=== PATIENT | female | born 1990 ===

== ENCOUNTER → 2020-08-01 | Outpatient (CLI) | payer SELFPAY | LOC: LAB 11:48 | PROVIDERS: ATTEND Obstetrics & Gynecology | DX: Z01.812 Encounter for preprocedural laboratory examination (principal); Z20.822 Contact with and (suspected) exposure to COVID-19 | CPT/HCPCS: U0003 ==

== ENCOUNTER 2020-08-04 05:52 | Inpatient (IN) | payer SELFPAY ==
[~2020-08-04] VITALS: Ht 149.9 cm; Wt 92.5 kg
[2020-08-04] MEDS ORDERED: CITRIC ACID/SODIUM CITRATE 30 ML SOLUTION. PO ONE (06:00)
[2020-08-04] MEDS ORDERED: IV NORMAL SALINE 1000ML BAG 1,000 ML IV SCH ×3 (06:00→10:30)
[2020-08-04] MEDS: IV RINGERS,LACTATED 1000ML 1,000 ML IV SCH ×4 (06:14→16:45)
[2020-08-04 06:52] VITALS: BP 122/51
[2020-08-04] MEDS ORDERED: ceFAZolin 2GM PREMIX 2 GM/50 ML BAG IV ONE (07:00)
[2020-08-04 07:04] LABS: BILIRUBIN,URINE NEGATIVE (NEG); CLARITY,URINE CLEAR; COLOR,URINE YELLOW; NITRITE,URINE NEGATIVE (NEG); PROTEIN,URINE 30 mg/dL (NEG-TRACE); UROBILINOGEN,URINE 0.2 mg/dL (0.2 mg/dL)
[2020-08-04 07:07] LABS: HEMATOCRIT 37.9 % (36.0-47.0); HEMOGLOBIN 12.9 g/dL (12.0-15.5); RED BLOOD COUNT 4.13 x10^6/uL (3.50-5.40); RED CELL DISTRIBUTION WIDTH 13.9 % (11.5-14.5); WHITE BLOOD COUNT 12.3 x10^3/uL (4.0-11.0)
[2020-08-04 07:19] LABS: BACTERIA,URINE MODERATE /HPF (0-FEW)
[2020-08-04] MEDS ORDERED: fentaNYL PF VIAL 100 MCG/2 ML VIAL ONE (07:50)
[2020-08-04] MEDS ORDERED: MORPHINE PF 10 MG/10 ML AMPUL. ONE (07:50)
[2020-08-04] MEDS ORDERED: OXYTOCIN 10 UNIT/ML VIAL. ONE ×2 (07:54→08:40)
[2020-08-04] MEDS ORDERED: FAMOTIDINE 20 MG/2 ML VIAL ONE ×2 (07:54→07:55)
[2020-08-04] MEDS ORDERED: ONDANSETRON PF 4 MG/2 ML VIAL. ONE (07:54)
[2020-08-04] MEDS ORDERED: ePHEDrine PF IN SALINE 50 MG/10 ML SYRINGE. IV ONE (07:55)
[2020-08-04] MEDS ORDERED: PHENYLEPHRINE 10 MG/ML VIAL. ONE (07:55)
--- NOTE | 2020-08-04 08:00 | PDOC1 ---
MERCHANDISE DISTRIBUTOR H&P Date of Admission: Date of Admission: Aug 04, 2020 at 05:52 History of Present Illness: EDC: 08/11/20 LMP: 08/11/20 30y @ 39.0 by L=7 presents for scheduled C/S. The pt had a C/S with her first b/c the baby had hydrocephalus. She decided that she wanted a repeat with this . She also would like her tubes tied. PMH: Denies PSH: C/S x 1 Meds: PNV, ASA All: NKDA OBHx: 1 x TC/S for hydrocephalus SH: no tob, no EtOH FH: noncontributory Medications: Meds: Current Medications Medications (Trade) Dose Ordered Sig/Myron Route PRN Reason Start Time Stop Time Status Last Admin Dose Admin Ringer's Solution 1,000 ml @ 125 mls/hr Q8H IV 08/04/20 06:00 08/04/20 07:28 Citric Acid/ Sodium Citrate (Bicitra) 30 ml 1X ONCE PO 08/04/20 06:00 08/04/20 06:01 DC 08/04/20 07:28 Allergies: Coded Allergies: No Known Drug Allergies (Unverified , 08/04/20) Physical Exam: Vital Signs: Vital Signs Date Time Temp Pulse Resp B/P (MAP) Pulse Ox O2 Delivery O2 Flow Rate FiO2 08/04/20 06:52 98.9 86 18 122/51 (74) 98 Room Air 98.9 PE: GENERAL: No apparent distress. Alert and oriented. HEENT: Head normocephalic, atraumatic. NECK: Supple LUNGS: Clear to auscultation. HEART: RRR, S1, S2 present, pulses intact ABDOMEN: Soft, positive bowel sounds. EXTREMITIES: No cyanosis or edema. NEUROLOGIC: Normal speech, normal tone PSYCHIATRIC: Normal affect, normal mood. SKIN: No ulceration. FHT: 140s +acels/no decls/mL[place]: quiet Labs: Laboratory Tests Test 08/04/20 06:25 08/04/20 06:30 White Blood Count 12.3 x10^3/uL (4.0-11.0) H Red Blood Count 4.13 x10^6/uL (3.50-5.40) Hemoglobin 12.9 g/dL (12.0-15.5) Hematocrit 37.9 % (36.0-47.0) Mean Corpuscular Volume 92 fL (79-100) Mean Corpuscular Hemoglobin 31 pg (25-35) Mean Corpuscular Hemoglobin Concent 34 g/dL (31-37) Red Cell Distribution Width 13.9 % (11.5-14.5) Platelet Count 224 x10^3/uL (140-400) Urine Collection Type Unknown Urine Color Yellow Urine Clarity Clear Urine pH 6.0 (<5.0-8.0) Urine Specific [place] 1.025 (1.000-1.030) Urine Protein 30 mg/dL (NEG-TRACE) Urine Glucose (UA) Negative mg/dL (NEG) Urine Ketones (Stick) Negative mg/dL (NEG) Urine Blood Moderate (NEG) Urine Nitrite Negative (NEG) Urine Bilirubin Negative (NEG) Urine Urobilinogen Dipstick 0.2 mg/dL (0.2 mg/dL) Urine Leukocyte Esterase Negative (NEG) Urine RBC 3-5 /HPF (0-2) Urine WBC 11-20 /HPF (0-4) Urine Squamous Epithelial Cells Many /LPF Urine Bacteria Moderate /HPF (0-FEW) Urine Mucus Slight /LPF Laboratory Tests 08/04/20 06:25 Laboratory Tests 08/04/20 06:25 Assessment & Plan: A/P 30y @ 39.0 by L=7 1.) Prev C/S x 1 desires repeat 2.) H/o congenital hydrocephalus 3.) Morena NI 4.) DPS - consent signed 06/09/20 5.) TDAP given 05/20/20 6.) Flu given 04/07/20 7.) Fetus cat I FHT 8.) GBS neg MERON RANDHAWA MD Aug 04, 2020 08:00
[2020-08-04] MEDS ORDERED: LIDOCAINE 2% PF 5 ML VIAL. ONE (09:00)
[2020-08-04] MEDS ORDERED: METOCLOPRAMIDE HCL 10 MG/2 ML VIAL. ONE (09:07)
[2020-08-04] MEDS ORDERED: KETOROLAC 30 MG/ML VIAL. ONE (09:26)
[2020-08-04] MEDS ORDERED: MMR per PROTOCOL. MC PRN (10:00)
[2020-08-04] MEDS ORDERED: BENZOCAINE 20% TOPICAL AEROSOL SPRAY 57GM CAN. TP PRN (10:00)
[2020-08-04] MEDS ORDERED: diphenhydrAMINE ORAL ELIXIR 12.5 MG/5 ML ML PO PRN (10:00)
[2020-08-04] MEDS ORDERED: KETOROLAC 30 MG/ML VIAL. IVP PRN (10:00)
[2020-08-04] MEDS ORDERED: TDaP (Adacel) per PROTOCOL. MC PRN (10:00)
[2020-08-04] MEDS ORDERED: ACETAMINOPHEN 325 MG TABLET. PO PRN (10:00)
[2020-08-04] MEDS ORDERED: 0.9 % SODIUM CHLORIDE 10 ML DISP.SYRIN. IV PRN (10:00)
[2020-08-04] MEDS ORDERED: OXYTOCIN 30 UNIT/500 ML PREMIX 500 ML IV PRN (10:00)
--- NOTE | 2020-08-04 10:10 | PDOC4 ---
OPERATIVE NOTE: PreOp Dx: 1.) IUP @ 39.0 by L=7, 2.) Prev C/S x 1 desires repeat, 3.) H/o congenital hydrocephalus, 4.) Morena NI, 5.) DPS - consent signed 06/09/20, 6.) GBS neg PostOp Dx: same Procedure: RLTCS/BTL Surgeon: Lilly Randhawa Anesthesia: GETA EBL: 700 cc Fluids: 1800 cc UOP: 450 cc Complications: None Findings: viable male delivered at 0846. Wt 6 lb 5 oz. APGARS 8/9. Right para tubal cyst, otherwise nml appearing uterus, tubes and ovaries. Cord ABG pH 7.20 / BE -10, VBG pH 7.26 / BE -8 Path: Cord blood, bilateral tubal segments MERON RANDHAWA MD Aug 04, 2020 10:10
[2020-08-04] MEDS ORDERED: MORPHINE SULFATE 2 MG/ML VIAL. IV PRN (10:15)
[2020-08-04] MEDS ORDERED: NALOXONE 0.4 MG/ML VIAL. IV PRN ×2 (10:15→10:30)
--- NOTE | 2020-08-04 10:45 | OP ---
DATE OF SURGERY: 08/04/2020 PREOPERATIVE DIAGNOSES: 1. Intrauterine at 39 weeks and 0 days by LMP equal to a 7-week ultrasound. 2. Previous section x 1, desires repeat. 3. History of congenital hydrocephalus with previous . 4. Varicella nonimmune. 5. Desires permanent sterilization. 6. GBS negative. POSTOPERATIVE DIAGNOSES: 1. Intrauterine at 39 weeks and 0 days by LMP equal to a 7-week ultrasound. 2. Previous section x 1, desires repeat. 3. History of congenital hydrocephalus with previous . 4. Varicella nonimmune. 5. Desires permanent sterilization. 6. GBS negative. PROCEDURE: Repeat low transverse with bilateral tubal ligation. SURGEON: Juan Daniel Randhawa MD ANESTHESIA: General endotracheal intubation. ESTIMATED BLOOD LOSS: 700 mL. FLUIDS: 1800 mL. URINE OUTPUT: 450 mL. COMPLICATIONS: None. FINDINGS: Viable male delivered at 0846, weighing 6 pounds 5 ounces with Apgars of 8 and 9. A right paratubal cyst was noted. Otherwise, normal appearing uterus, tubes and ovaries. Cord ABG with a pH of 7.20 and base excess of -10 and a VBG with a pH of 7.26 and a base excess of -8. PATHOLOGY: Cord blood, cord ABG and bilateral tubal segments. DESCRIPTION OF PROCEDURE: The patient was taken to the operating room where spinal anesthesia was attempted to be placed. This could not be accomplished so the patient was placed under general endotracheal intubation. The patient was prepped and draped prior to her intubation. Once the patient was intubated, a Pfannenstiel skin incision was made through her previous incision and carried down to underlying layer of fascia. The fascia was then nicked in the midline. The fascial incision was extended laterally with Melissa scissors. Superior aspect of fascial incision was then grabbed with Cherise clamps, elevated and the underlying rectus muscle was dissected off with the scalpel. Attention was then turned to the inferior aspect of the fascial incision, which was grabbed with Cehrise clamps, elevated and underlying rectus muscle was dissected off with Melissa scissors. Attention was then turned to the midline where the peritoneum was then grasped with hemostats and entered sharply with Metzenbaum scissors. Digital examination of the peritoneal cavity revealed minimal adhesions. At that point, the peritoneal incision was then extended superiorly and inferiorly with good visualization of the bladder with traction and countertraction. An Jose ring was then placed into the abdomen to better visualize the lower uterine segment. Metzenbaum scissors were used to create a bladder flap. The lower uterine segment was then incised in transverse fashion with the scalpel. Hysterotomy was then extended with traction and countertraction. The head was then flexed and brought to the hysterotomy. The rest of the infant was delivered atraumatically. Cord was double clamped and cut and was handed over to the awaiting flight engineer performance qualified. Placenta was then removed manually. Uterus was then cleared of all clots and debris. Uterine incision was then repaired with #1 chromic in a running locked fashion. A second layer of the same suture was used to imbricate. Good hemostasis was noted. At that point, the uterus was exteriorized to allow for the tubal to be performed. Left tube was then identified and followed out to the fimbria. The tube was then grabbed with a Sandrita clamp. An opening was created in the avascular portion of the mesosalpinx. Two free ties of 0 gut were then used to ligate the tube. This 2 cm segment of the tube was then excised and sent to pathology. Attention was then turned to the right tube where a paratubal cyst was noted at the distal end near the fimbria. Again, a [place] clamp was used to grasp the tube. An opening was created in avascular space of the mesosalpinx. Two free ties of 0 gut were used to ligate the tube. Again this 2 cm segment of the tube was then sent to pathology. The tube was hemostatic. At that point, the uterus was returned to the abdomen. Examination of the hysterotomy revealed some bleeding along the edges. Cqxsgz-oh-efdze stitch was then placed at the left lateral edge with a 2-0 Vicryl. Since the remaining portion of the hysterotomy seem to be bleeding, this was ran in an interlocking fashion. Once this had been completed, there still seemed to be 1 portion of the midline of the hysterotomy that was still bleeding. A sckwbd-fc-ouzta stitch was then placed with a 2-0 chromic. Good hemostasis was noted. At that point, the gutters were copiously irrigated and cleared of all clots and debris. Reexamination of the tubal sites revealed good hemostasis. The Jose ring was removed, the peritoneum was then reapproximated with 2-0 Vicryl in a running fashion. The muscle was reapproximated with 2-0 Vicryl in a running fashion. The fascia was then closed with 0 Vicryl in a running fashion. Three interrupted stitches of 2-0 Vicryl were used to reapproximate the skin. At that point, a 3-0 Monocryl was used to close the skin in subcuticular manner. Sponges, laps, and needles were correct x 3. Three grams of Ancef were given prior to the procedure. The patient was taken to the recovery room in stable condition. JUAN DANIEL RANDHAWA MD DR: DANIEL/nts JOB#: [id number] / [id number]
[2020-08-04] MEDS: MORPHINE SULFATE 30 ML IV PRN (10:48)
[2020-08-04 12:55] VITALS: BP 112/51
[2020-08-04 14:05] VITALS: BP 119/61
[2020-08-04 16:47] VITALS: BP 140/60
[2020-08-04 20:15] VITALS: BP 132/63
[2020-08-05 00:15] VITALS: BP 106/44
[2020-08-05] MEDS: IV RINGERS,LACTATED 1000ML 1,000 ML IV SCH (00:27)
[2020-08-05] MEDS: MORPHINE SULFATE 30 ML IV PRN (00:54)
[2020-08-05 04:20] VITALS: BP 98/49
[2020-08-05 08:01] LABS: HEMATOCRIT 27.8 % (36.0-47.0); HEMOGLOBIN 9.3 g/dL (12.0-15.5); RED CELL DISTRIBUTION WIDTH 13.8 % (11.5-14.5); WHITE BLOOD COUNT 10.9 x10^3/uL (4.0-11.0)
[2020-08-05 08:06] VITALS: BP 122/57
[2020-08-05] MEDS: FERROUS SULFATE 325 MG TABLET. PO SCH ×2 (08:32→21:02)
[2020-08-05] MEDS: oxyCODONE/APAP 5/325 1 TAB TABLET PO PRN ×5 (08:33→21:03)
[2020-08-05] MEDS ORDERED: MULTIVITAMIN with MINERAL TABLET. PO SCH (09:00)
[2020-08-05] MEDS ORDERED: PRENATAL MULTIVITAMIN TABLET. PO SCH (09:00)
--- NOTE | 2020-08-05 11:05 | PDOC ---
LLAMA FARMER PROGRESS NOTE Date of Service: DATE: 08/05/20 TIME: 11:04 Subjective: Pt with good pain control. [place] PO. Voiding. Minimal lochia Objective: Vital Signs: Vital Signs Date Time Temp Pulse Resp B/P (MAP) Pulse Ox O2 Delivery O2 Flow Rate FiO2 08/04/20 10:48 Room Air 08/04/20 12:55 97.8 64 16 112/51 (71) 97.8 08/04/20 14:05 97 Vital Signs Date Time Temp Pulse Resp B/P (MAP) Pulse Ox O2 Delivery O2 Flow Rate FiO2 08/05/20 09:18 16 95 08/05/20 08:06 98.5 75 122/57 (78) 98.5 08/05/20 04:20 Room Air Labs: Laboratory Tests Test 08/05/20 07:40 White Blood Count 10.9 x10^3/uL (4.0-11.0) Red Blood Count 3.00 x10^6/uL (3.50-5.40) L Hemoglobin 9.3 g/dL (12.0-15.5) L Hematocrit 27.8 % (36.0-47.0) L Mean Corpuscular Volume 93 fL (79-100) Mean Corpuscular Hemoglobin 31 pg (25-35) Mean Corpuscular Hemoglobin Concent 34 g/dL (31-37) Red Cell Distribution Width 13.8 % (11.5-14.5) Platelet Count 182 x10^3/uL (140-400) Laboratory Tests 08/05/20 07:40 Laboratory Tests 08/05/20 07:40 Physical Exam: GENERAL: No apparent distress. Alert and oriented. HEENT: Head normocephalic, atraumatic. NECK: Supple LUNGS: Clear to auscultation. HEART: RRR, S1, S2 present, pulses intact ABDOMEN: Soft, positive bowel sounds. EXTREMITIES: No cyanosis or edema. NEUROLOGIC: Normal speech, normal tone PSYCHIATRIC: Normal affect, normal mood. SKIN: No ulceration. FFNT below umb No C/C/E Inc: C/D/I Assessment & Plan: A/P 30y POD # 1 s/p RLTCS/BTL 1.) PO doing well 2.) Morena NI 3.) Hgb 12.9 -> 9.3 4.) TDAP given 12/8/20 5.) Flu given 04/07/20 6.) Cont PO care MERON RANDHAWA MD Aug 05, 2020 11:05
[2020-08-05 16:43] VITALS: BP 119/63
[2020-08-05 20:00] VITALS: BP 136/83
[2020-08-05] MEDS: DOCUSATE SODIUM 100 MG CAPSULE. PO PRN (21:01)
[2020-08-05] MEDS: IBUPROFEN 400 MG TABLET. PO PRN (21:03)
[2020-08-06] MEDS: oxyCODONE/APAP 5/325 1 TAB TABLET PO PRN ×3 (01:01→10:20)
[2020-08-06 05:14] VITALS: BP 106/69
[2020-08-06] MEDS: IBUPROFEN 400 MG TABLET. PO PRN (07:30)
[2020-08-06] MEDS: FERROUS SULFATE 325 MG TABLET. PO SCH (07:31)
[2020-08-06] MEDS: DOCUSATE SODIUM 100 MG CAPSULE. PO PRN (07:36)
[2020-08-06] MEDS ORDERED: IBUP-1060 PO (08:54)
[2020-08-06] MEDS ORDERED: DOCU-109 PO (08:54)
[2020-08-06] MEDS ORDERED: OXYC1TAB15 PO (08:54)
[2020-08-06] MEDS ORDERED: FERR325T14 PO (08:54)
--- NOTE | 2020-08-06 09:07 | PDOC ---
OPTOMECHANICAL TECHNICIAN PROGRESS NOTE Date of Service: DATE: 08/06/20 TIME: 09:06 Subjective: Pt with good pain control. [place] PO. Voiding. Minimal lochia Objective: Vital Signs: Vital Signs Date Time Temp Pulse Resp B/P (MAP) Pulse Ox O2 Delivery O2 Flow Rate FiO2 08/05/20 08:06 98.5 75 122/57 (78) 95 98.5 08/05/20 08:33 16 08/05/20 13:06 Room Air Vital Signs Date Time Temp Pulse Resp B/P (MAP) Pulse Ox O2 Delivery O2 Flow Rate FiO2 08/06/20 06:40 18 Room Air 08/06/20 05:14 97.8 80 106/69 (81) 96 97.8 Physical Exam: GENERAL: No apparent distress. Alert and oriented. HEENT: Head normocephalic, atraumatic. NECK: Supple LUNGS: Clear to auscultation. HEART: RRR, S1, S2 present, pulses intact ABDOMEN: Soft, positive bowel sounds. EXTREMITIES: No cyanosis or edema. NEUROLOGIC: Normal speech, normal tone PSYCHIATRIC: Normal affect, normal mood. SKIN: No ulceration. Inc: C/D/I FFNT below umb No C/C/E Assessment & Plan: A/P 30y POD #2 s/p RLTCS/BTL 1.) PO doing well 2.) Morena NI 3.) Hgb 12.9 -> 9.3 4.) TDAP given 05/20/20 5.) Flu given 04/07/20 6.) D/c home MERON RANDHAWA MD Aug 06, 2020 09:07
--- NOTE | 2020-08-06 09:48 | DS ---
DATE OF DISCHARGE: 08/06/2020 ADMISSION DIAGNOSES: 1. Intrauterine at 39 weeks and 0 days by last menstrual period equal to a 7-week ultrasound. 2. Previous section x 1, desires repeat. 3. History of congenital hydrocephalus in 2014. 4. Varicella nonimmune. 5. Desires permanent sterilization. 6. Group B streptococcus negative. DISCHARGE DIAGNOSES: 1. Intrauterine at 39 weeks and 0 days by last menstrual period equal to a 7-week ultrasound. 2. Previous section x 1, desires repeat. 3. History of congenital hydrocephalus in 2014. 4. Varicella nonimmune. 5. Desires permanent sterilization. 6. Group B streptococcus negative. PROCEDURE: Repeat low transverse with bilateral tubal ligation. BRIEF HOSPITAL COURSE: The patient is a 30-year-old 2, para 1-0-0-1, at 39 weeks and 0 days by LMP equal to a 7-week ultrasound who presented to Labor and Delivery for a scheduled . The patient had a with her first due to the baby having hydrocephalus. The patient decided that she wanted a repeat with this . The patient ultimately underwent said procedure with tubal ligation. See operative note for full detail. By day #2, the patient was meeting all discharge criteria and was subsequently discharged home. Of note, the patient's hemoglobin on admission was 12.9 and after delivery was found to be 9.3. DISCHARGE INSTRUCTIONS: The patient was told not to lift anything greater than 20 pounds, to have pelvic rest for 6 weeks, and not to drive on narcotics. CALL IF: The patient was to call if she had fevers, chills, nausea, vomiting, abdominal pain, or any additional questions or concerns. DISCHARGE MEDICATIONS: The patient was given a prescription for Percocet 5, 15 pills; Motrin 800 mg, 30 pills; Colace 100 mg, 30 pills; and ferrous sulfate 325 mg, 30 pills. FOLLOWUP: The patient was to follow up on 08/14/2020, at 1:20 [place] an [place] [facility] [place] MERON RANDHAWA MD DR: DANIEL/su JOB#: [id number] / [id number]
--- NOTE | 2020-08-06 12:48 | NUR ---
Pt. discharged from unit around 1200 accompanied by and infant, all belongings go with pt. Pt. departs via wheelchair with RN assistance. VSS.
== END 2020-08-06 12:15 | disposition home or self-care (01) | DRG 785 ==
LOC: 3 SO LND 05:52
PROVIDERS: ADMIT Obstetrics & Gynecology; ATTEND Obstetrics & Gynecology
PROC: 10D00Z1 Extraction of Products of Conception, Low, Open Approach (ICD-10-PCS; principal; 2020-08-04)
PROC: 0UB70ZZ Excision of Bilateral Fallopian Tubes, Open Approach (ICD-10-PCS; 2020-08-04)
DX: O34.211 Maternal care for low transverse scar from previous cesarean delivery (principal); N83.8 Other noninflammatory disorders of ovary, fallopian tube and broad ligament; O99.892 Other specified diseases and conditions complicating childbirth; Z3A.39 39 weeks gestation of pregnancy; Z37.0 Single live birth; Z30.2 Encounter for sterilization
CPT/HCPCS: 36415; 81001; 85027; 86592; 86850; 86900; 86901; 87086; J0690; J1885; J2270; J2274; J2370; J2405; J2590; J2765; J3010; J3490; J7120; G0378